=== PATIENT | male | born 1995 | race Two or more races ===

== ENCOUNTER 2019-09-10 07:22 | Emergency (ER) | payer OTHER ==
[2019-09-10 09:03] LABS: APPEARANCE,URINE CLEAR; BILIRUBIN,URINE NEGATIVE (NEGATIVE); COLOR,URINE YELLOW; GLUCOSE, URINE NEGATIVE (NEGATIVE); KETONES,URINE NEGATIVE (NEGATIVE); LEUKOCYTE ESTERASE,URINE NEGATIVE (NEGATIVE); NITRITE,URINE NEGATIVE (NEGATIVE); PROTEIN,URINE NEGATIVE (NEGATIVE); URINE SPECIFIC GRAVITY 1.019; UROBILINOGEN,URINE NEGATIVE mg/dL (<2.0)
[2019-09-10] MEDS ORDERED: VALACYCLOVIR HCL 500 MG TABLET PO ONE (09:46)
--- NOTE | 2019-09-10 09:52 | ER Document Report ---
HPI - HPI Patient complains to provider of: Concern about STD Time Seen by Provider: 09/10/19 09:06 Onset/Duration: Persistent Pain Level: Denies Context: Patient presents with concern about possible STD. Patient states he noticed a rash to the base of the penis and saw a little area that made him worried that he may have herpes. Patient denies any drainage or discharge from the penis. Patient denies any dysuria symptoms. Associated Symptoms: Other - Rash to penis with small ulceration. denies: Fever Exacerbated by: Denies Relieved by: Denies Similar symptoms previously: No Recently seen / treated by doctor: No - ROS ROS below otherwise negative: Yes Systems Reviewed and Negative: Yes All other systems reviewed and negative - CONSTITUTIONAL Constitutional: DENIES: Fever, Chills - EENT EENT: DENIES: Sore Throat - GASTROINTESTINAL Gastrointestinal: DENIES: Nausea - URINARY Urinary: DENIES: Dysuria - REPRODUCTIVE Notes: Rash to the base of the penis - DERM Skin Problems: Rash Past Medical History - General Information source: Patient - Social History Smoking Status: Never Smoker Chew tobacco use (# tins/day): No Frequency of alcohol use: Occasional Drug Abuse: None 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 IN LAST 30 DAYS: No - HEENT HEENT: Atraumatic, Normocephalic - NECK Neck: Normal Inspection - RESPIRATORY Respiratory: Breath Sounds Normal, No Respiratory Distress - CARDIOVASCULAR Cardiovascular: Regular Rate, Regular Rhythm - REPRODUCTIVE Notes: Patient with scaling rash just inferior to the base of the penis, patient with a 2 mm excoriated area, area is nonpainful, no other skin lesions or rashes. No drainage or discharge. No inguinal lymphadenopathy. Diamond THURSTON as standby - MUSCULOSKELETAL/EXTREMETIES Musculoskeletal/Extremeties: SHAD - NEURO Level of Consciousness: Awake, Alert, Appropriate Motor/Sensory: No Motor Deficit - DERM Integumentary: Warm, Dry, Rash - Scaling dry rash to base of the penis Course - Re-evaluation Re-evalutation: 09/10/19 09:48 Patient very anxious about the possibility of herpes. Will obtain specimen and treat empirically at this time. Patient encouraged to use a condom with intercourse. - Vital Signs Vital signs: Temp Pulse Resp BP Pulse Ox 97.6 F 82 16 164/54 H 100 09/10/19 07:26 09/10/19 07:26 09/10/19 07:26 09/10/19 07:26 09/10/19 07:26 - Laboratory Laboratory results interpreted by me: 09/10/19 08:00 Urine Ascorbic Acid 20 H Discharge - Discharge Clinical Impression: Concern about STD in male without diagnosis, Skin rash Condition: Stable Disposition: HOME, SELF-CARE Additional Instructions: Return immediately for any new or worsening symptoms Followup with your primary care provider, call tomorrow to make a followup appointment Culture is pending, we will call if you need any different treatment. Prescriptions: Nystatin [Mycostatin Cream 15 gm] 1 applic TP BID #30 gm Valacyclovir HCl [Valacyclovir] 1,000 mg PO TID #21 tablet [facility] - Follow up as needed
[2019-09-10 10:12] VITALS: BP 149/62
[2019-09-10 10:23] LABS: CHLAM PCR NOT DETECTED (NOT DETECT)
== END 2019-09-10 10:10 | disposition home or self-care (01) ==
LOC: ER 07:22
DX: Z20.2 Contact with and (suspected) exposure to infections with a predominantly sexual mode of transmission (principal); R21 Rash and other nonspecific skin eruption
CPT/HCPCS: 81001; 87250; 87491; 87591; 99283